=== PATIENT | male | born 1995 | race Hispanic/Latino ===

== ENCOUNTER 2017-07-07 17:52 | Emergency (ER) | payer OTHER ==
[2017-07-07 17:58] VITALS: BP 142/80; PULSE 68; RESP 20; TEMP 98; O2SAT 99
--- NOTE | 2017-07-07 19:33 | ED PDOC ---
HPI: Psych/Substance Abuse Time Seen by Provider: 07/07/17 19:07 Chief Complaint (Nursing): Psychiatric Evaluation Chief Complaint (Provider): Psychiatric Evaluation History Per: Patient History/Exam Limitations: no limitations Onset/Duration Of Symptoms: Intermittent Episodes Suicide/Self Injury Attempted (Context): None Additional Complaint(s): Patient brought to the ER via EMS for psychiatric evaluation. Reports history of depression. Patient has been talking to sister lately regarding feelings of depression. Denies any suicidal or homicidal ideations. Patient states he is not taking any psychiatric medications. He used to see a therapist but stopped recently. Otherwise: (-) hallucinations, (-) trauma, (-) fever, (-) headache, (- ) dyspnea, (-) vomiting, (-) substance abuse, (-) patient intent of initiating a suicide attempt, (-) plan. PMD: None Past Medical History Reviewed: Historical Data, Nursing Documentation, Vital Signs Vital Signs: Last Vital Signs Temp 98.0 F 07/07/17 17:55 Pulse 68 07/07/17 17:55 Resp 20 07/07/17 17:55 BP 142/80 07/07/17 17:55 Pulse Ox 99 07/07/17 17:55 - Medical History PMH: Depression - Family History Family History: States: Unknown Family Hx - Allergies Allergies/Adverse Reactions: Allergies Allergy/AdvReac Type Severity Reaction Status Date / Time No Known Allergies Allergy Verified 07/07/17 17:55 Review of Systems ROS Statement: Except As Marked, All Systems Reviewed And Found Negative Psych: Positive for: Depression. Negative for: Suicidal ideation (or HI, hallucinations) Physical Exam - Reviewed Nursing Documentation Reviewed: Yes Vital Signs Reviewed: Yes - Physical Exam Comments: GENERAL APPEARANCE: Patient is awake, alert, oriented x 3, in no acute distress. SKIN: Warm, dry; (-) cyanosis HEAD: (-) scalp swelling, (-) scalp tenderness. EYES: (-) conjunctival pallor, (-) scleral icterus, (-) nystagmus. ENMT: Mucous membranes moist. Airway patent: (-) stridor. NECK: (-) tenderness, (-) stiffness, (-) lymphadenopathy. CHEST AND RESPIRATORY: (-) rales, (-) rhonchi, (-) wheezes; breath sounds equal. ABDOMEN: Soft, (-) distention, (-) tenderness, (-) guarding. NEURO AND PSYCH: Mental status as above. Affect: Calm and cooperative. government instructor: Intact. Pupils equal and reactive; EOMI; (-) facial asymmetry; tongue and uvula midline. Strength and DTRs symmetric. - ECG O2 Sat by Pulse Oximetry: 99 (RA) Pulse Ox Interpretation: Normal Medical Decision Making Medical Decision Making: Time: 19:08 Plan: --Crisis will evaluate patient Patient was seen and evaluated by [place], who recommends outpatient follow up as per Dr. Babcock. Diagnosis: Depression They recommend no medical clearance as patient has no physical complaints. Advised to follow up with outpatient psychiatric services without fail. Return to the emergency room at any time for any new or worsening symptoms. Patient states he fully agrees with and understands discharge instructions. States that he agrees with the plan and disposition. Verbalized and repeated discharge instructions and plan. I have given the patient opportunity to ask any additional questions. Scribe Attestation: Documented by Lashawn Daniel, acting as a scribe for Morenita Garcia PA-C Provider Scribe Attestation: All medical record entries made by the Scribe were at my direction and personally dictated by me. I have reviewed the chart and agree that the record accurately reflects my personal performance of the history, physical exam, medical decision making, and the department course for this patient. I have also personally directed, reviewed, and agree with the discharge instructions and disposition. Disposition - Clinical Impression Clinical Impression: Depression - Patient ED Disposition Is Patient to be Admitted: No Counseled Patient/Family Regarding: Diagnosis, Need For Followup - Disposition Disposition: Routine/Home Disposition Time: 19:28 Condition: STABLE Additional Instructions: Follow up with outpatient referral provided by crisis. Instructions: Depression (ED) Forms: SYSTRAN (Upper Sorbian) Print Language: WOLOF - POA Present On Arrival: None
== END 2017-07-07 20:08 | disposition home or self-care (01) ==
LOC: H.ER 17:52
DX: F32.9 Major depressive disorder, single episode, unspecified (principal); Z81.8 Family history of other mental and behavioral disorders